=== PATIENT | female | born 1995 | race African-American/Black ===

== ENCOUNTER 2017-08-21 20:53 | Emergency (ER) | payer OTHER ==
[~2017-08-21] VITALS: Ht 144.8 cm; Wt 70.8 kg
[2017-08-21 20:59] VITALS: BP 124/84; TEMP 98.3
[2017-08-21] MEDS ORDERED: ZANTAC300 MG PO (21:01)
[2017-08-21] MEDS ORDERED: SUCRALFATE1 GM PO (21:01)
[2017-08-21] MEDS ORDERED: TRI-PREVIFEM PO (21:01)
[2017-08-21 21:40] LABS: PLATELET COUNT 313 K/uL (152-353)
[2017-08-21 21:53] LABS: POTASSIUM 3.6 mmol/L (3.6-5.2)
== END 2017-08-21 22:04 | disposition home or self-care (01) ==
LOC: ED 20:53
DX: R10.11 Right upper quadrant pain (principal)
CPT/HCPCS: 36415; 80053; 85027; 99283

== ENCOUNTER 2017-08-24 11:09 | Outpatient (CLI) | payer OTHER ==
[~2017-08-24 11:09] MED LIST: SUCRALFATE1 GM PO; TRI-PREVIFEM PO; ZANTAC300 MG PO
== END 2017-08-24 22:15 | disposition home or self-care (01) ==
LOC: US 11:09
DX: R10.84 Generalized abdominal pain (principal); R10.816 Epigastric abdominal tenderness

== ENCOUNTER 2020-06-29 09:18 | Outpatient (CLI) | payer OTHER | END 2020-06-29 19:14 | disposition home or self-care (01) | LOC: RAD 09:18 | PROVIDERS: ATTEND Family Medicine | DX: M54.9 Dorsalgia, unspecified (principal) ==